=== PATIENT | female | born 1965 | race African-American/Black ===

== ENCOUNTER 2016-08-03 08:42 | Outpatient (CLI) ==
[2016-06-02 22:00] VITALS: BMI 39.6
--- NOTE | 2016-08-03 10:19 | CT ---
EXAM: CT right shoulder without contrast HISTORY: Right shoulder pain for 8 months. COMPARISON: Radiograph 05/19/2016. TECHNIQUE: Multiple axial images of the right shoulder were obtained without intravenous contrast. Images were reformatted in the sagittal and coronal planes. FINDINGS: Bone mineralization is normal. There is no fracture or dislocation. There is moderate a cromioclavicular joint space narrowing with associated marginal osteophyte and subchondral cyst form ation. Glenohumeral joint is intact. No erosive changes are seen. No focal soft tissue abnormalit y is seen. The visualized right lung is clear. Degenerative changes present in the visualized cervi alen and thoracic spine. IMPRESSION: 1. No fracture or dislocation. 2. Moderate acromioclavicular osteoarthritis.
== END 2016-08-03 08:43 | disposition home or self-care (01) ==
LOC: RAD 08:42
PROVIDERS: ATTEND Nurse Practitioner Family
DX: M25.511 Pain in right shoulder (principal)

== ENCOUNTER 2016-12-07 10:28 | Emergency (ER) ==
[2016-12-07 10:36] VITALS: BP 149/89; TEMP 97.9; BMI 35.9
[2016-12-07] MEDS ORDERED: MORPHINE 4 MG/ML SYRINGE IM STA (10:40)
[2016-12-07] MEDS ORDERED: ZOFRAN 4 MG/2 ML IM STA (10:40)
[2016-12-07] MEDS ORDERED: TORADOL IM STA (10:41)
--- NOTE | 2016-12-07 10:45 | ED.PDOC ---
General ED Provider: Dr. CHARO NAYLOR Chief Complaint: Back Pain Stated Complaint: back pain lumbar Time Seen by Physician: 10:30 (seen with gulshan at all times ) Mode of Arrival: Walk-In Information Source: Patient Exam Limitations: No limitations Primary Care Provider: TIGRE ABARCA Nursing and Triage Documentation Reviewed and Agree: Yes Musculoskeletal Complaint Exam - Back Pain Complaint/Exam Mechanism of Injury: Reports: Trauma (while getting out of car twisted and sudden pain ) Onset/Duration: 1 day Symptoms Are: Still present Timing: Constant Episodes Lasting: Hours Initial Severity: Moderate Current Severity: Moderate Character: Reports: Throbbing, Spasmodic, Stiffness Aggravating: Reports: Movements, Lifting, Bending, Walking Alleviating: Reports: Rest, Position Associated Signs and Symptoms: Denies: Swelling, Redness, Bruising, Fever, Weakness, Numbness, Tingling, Abdominal pain, Flank pain, Bladder incontinence, Bowel incontinence, Weight loss, Pain with weight bearing Related History: Reports: Similar episode AAA Risk Factors: Reports: None Cauda Equina Risk Factors: Reports: None Epidural Abcess Risk Factors: Reports: None Related Surgical History: Reports: None Focal Tenderness: No Paraspinal Muscle Tenderness: No Paraspinal Muscle Spasm: No Scoliosis: No Lordosis: No Kyphosis: No SLR Test: Right Negative, Left Negative Hip Motion Testing Pain: Right Negative, Left Negative Focal Weakness: Present: None Focal Sensory Loss: Present: None Differential Diagnoses: Renal Colic, Strain, Sprain Review of Systems - Review Of Systems Constitutional: Reports: No symptoms Eyes: Reports: No symptoms Ears, Nose, Mouth, Throat: Reports: No symptoms Respiratory: Reports: No symptoms Cardiac: Reports: No symptoms GI: Reports: No symptoms : Reports: No symptoms Musculoskeletal: Reports: Back pain Skin: Reports: No symptoms Neurological: Reports: No symptoms Endocrine: Reports: No symptoms Hematologic/Lymphatic: Reports: No symptoms All Other Systems: Reviewed and Negative Past Medical History - Past Medical History Previously Healthy: No Endocrine: Reports: DM 2 Cardiovascular: Reports: Hypertension Respiratory: Reports: None Hematological: Reports: None Gastrointestinal: Reports: None Genitourinary: Reports: None Neuro/Psych: Reports: None Musculoskeletal: Reports: Back Pain (lumbar) Cancer: Reports: None Last Menstrual Period: 04/27/16 - Surgical History General Surgical History: Reports: Unknown - Family History Family History: Reports: Unknown - Social History Smoking Status: Never smoker Hx Substance Use: No Alcohol Screening: None - Immunizations Tetanus Shot up to Date: Yes Physical Exam - Physical Exam Appearance: Well-appearing, No pain distress, Well-nourished Eyes: SHABBIR, EOMI, Conjunctiva clear ENT: Ears normal, Nose normal, Oropharynx normal Respiratory: Airway patent, Breath sounds clear, Breath sounds equal, Respirations nonlabored Cardiovascular: RRR, Pulses normal, No rub, No murmur GI/: Soft, Nontender, No masses, Bowel sounds normal, No Organomegaly Musculoskeletal: Normal strength, ROM intact, No edema, No calf tenderness Skin: Warm, Dry, Normal color Neurological: Sensation intact, Motor intact, Reflexes intact, Cranial nerves intact, Alert, Oriented Psychiatric: Affect appropriate, Mood appropriate Interpretation - Radiology Interpretation Radiology Interpretation By: Radiologist Critical Care Note - Critical Care Note Total Time (mins): 0 Course - Course Orders, Labs, Meds: Orders Category Date Time Status Ketorolac Tromethamine [Toradol] MEDS 12/07/16 10:41 Stat 30 mg IM ONCE STA Morphine Sulfate [Morphine 4 mg/ml Syringe] MEDS 12/07/16 10:40 Stat 4 mg IM ONCE STA Ondansetron HCl/Pf [Zofran 4 mg/2 ml] MEDS 12/07/16 10:40 Stat 4 mg IM ONCE STA CT LUMBAR SPINE W/O CONTRAST Stat RADS 12/07/16 10:41 Ordered Medications Discontinued Medications Generic Name Dose Route Start Last Admin Trade Name Freq PRN Reason Stop Dose Admin Ketorolac Tromethamine 30 mg 12/07/16 10:41 Toradol IM 12/07/16 10:42 ONCE STA Morphine Sulfate 4 mg 12/07/16 10:40 Morphine 4 Mg/Ml Syringe IM 12/07/16 10:41 ONCE STA Ondansetron HCl 4 mg 12/07/16 10:40 Zofran 4 Mg/2 Ml IM 12/07/16 10:41 ONCE STA Vital Signs: Temp Pulse Resp BP Pulse Ox 12/07/16 10:28 97.9 F 71 20 149/89 H 98 Departure - Departure Time of Disposition: 10:44 Disposition: HOME SELF-CARE Discharge Problem: Low back pain Qualifiers: Chronicity: acute Back pain laterality: unspecified Sciatica presence: without sciatica Qualifier Code: (M54.5) Low back pain Instructions: Low Back Strain (ED), Acute Low Back Pain (ED), Lower Back Exercises (ED), Back Pain (ED), Chronic Back Pain (ED) Condition: Good Pt referred to PMD for follow-up: No Prescriptions: Hydrocodone/Acetaminophen [[place] 10-325 Tablet] 1 each PO Q8HR #7 tablet Allergies/Adverse Reactions: Allergies lisinopril Adverse Reaction (Verified 12/07/16 10:38) Wheezing Home Medications: Ambulatory Orders Hydrocodone/Acetaminophen [[place] 10-325 Tablet] 1 each PO Q8HR #7 tablet Disposition Discussed With: Patient
--- NOTE | 2016-12-07 11:45 | CT ---
EXAM: CT lumbar spine without contrast. HISTORY: Lumbar pain COMPARISON: MRI lumbar spine 06/03/2015 and 10/09/2014 TECHNIQUE: Serial axial images of the spine were obtained from the lower thoracic spine through the pelvis without contrast. These were viewed in multiple planes. FINDINGS: Vertebral bodies demonstrate no acute compression fracture. There is 0.4 cm of anterolis thesis of L4 on L5. There is no lytic or blastic lesion. There is moderate to severe facet arthropa thy throughout the lumbar spine. The lumbosacral junction is intact. There is degenerative disease of the sacroiliac joints. L1-L2: Normal L2-L3: Facet arthropathy demonstrates mild bilateral neural foraminal narrowing. L3-L4: Broad-based disc bulge and facet arthropathy with mild central and moderate bilateral neural foraminal narrowing L4-L5: Anterolisthesis with broad-based disc bulge and facet arthropathy with moderate central narro wing as seen on image 52 and bilateral severe neural foraminal narrowing. This is similar in appear ance to lumbar spine 06/03/2015. L5-S1: Facet arthropathy and broad-based disc bulge contribute to bilateral moderate neural foramina l narrowing. Limited views of the soft tissues are unremarkable. IMPRESSION: 1. No acute compression fracture with stable anterolisthesis of L4 on L5. 2. Multilevel degenerative disease of the lumbar spine with scattered areas of central neural sirisha inal narrowing as noted above. This is most pronounced at L4-L5 with moderate central and bilateral severe neural foraminal narrowing. If further evaluation is clinically indicated, MRI may be obtai summer.
== END 2016-12-07 11:52 | disposition home or self-care (01) ==
LOC: ED 10:28
DX: M54.5 Low back pain (principal); X50.1XXA Overexertion from prolonged static or awkward postures, initial encounter
CPT/HCPCS: 96372; 99283

== ENCOUNTER 2016-12-11 16:16 | Emergency (ER) ==
[2016-12-11 16:30] VITALS: BP 144/108; TEMP 97.3
== END 2016-12-11 16:32 | disposition left against medical advice (07) ==
LOC: ED 16:16
DX: M54.9 Dorsalgia, unspecified (principal); G89.29 Other chronic pain

== ENCOUNTER 2016-12-14 11:19 | Outpatient (CLI) ==
[2016-12-14 12:43] LABS: BASOPHILS % (AUTO) 0.5 % (0.0-3.0); EOSINOPHILS # (AUTO) 0.1 K/ul (0.0-0.7); EOSINOPHILS % (AUTO) 1.1 % (0.0-7.0); HEMATOCRIT 38.9 % (37.0-47.0); HEMOGLOBIN 12.7 g/dl (12.0-16.0); IMMATURE GRANULOCYTE % (AUTO) 0.2 % (0.0-5.0); LYMPHOCYTES # (AUTO) 2.1 K/uL (0.60-3.4); LYMPHOCYTES % (AUTO) 24.8 (10.0-50.0); MEAN CORPUSCULAR HEMOGLOBIN 31.4 pg (27.0-31.0); MEAN CORPUSCULAR HGB CONC 32.6 (31.8-35.4); MONOCYTES # (AUTO) 0.4 K/uL (0.4-2.0); MONOCYTES % (AUTO) 4.9 (0-10); NEUTROPHILS # (AUTO) 5.9 K/ul (2.0-6.9); NEUTROPHILS % (AUTO) 68.5; PLATELET COUNT 249 10^3/uL (140-440); RED BLOOD COUNT 4.05 10^6/ul (4.20-5.40); WHITE BLOOD COUNT 8.56 K/ul (4.6-10.2)
[2016-12-14 13:18] LABS: ALBUMIN 3.6 g/dL (3.4-5.0); ALBUMIN/GLOBULIN RATIO 0.86; ANION GAP 10.8; BILIRUBIN,TOTAL 0.59 mg/dL (0.00-1.20); BUN/CREATININE RATIO 10.25; CHOL/HDL RATIO 3.4 (4.5-5.5); CREATININE 0.78 mg/dL (0.60-1.30); POTASSIUM 3.8 mmol/L (3.5-5.10); TOTAL PROTEIN 7.8 g/dL (6.4-8.2)
== END 2016-12-14 11:20 | disposition home or self-care (01) ==
LOC: LAB 11:19
PROVIDERS: ATTEND Nurse Practitioner Family
DX: E11.9 Type 2 diabetes mellitus without complications (principal); E66.9 Obesity, unspecified; E78.5 Hyperlipidemia, unspecified; M54.31 Sciatica, right side
CPT/HCPCS: 36415; 80053; 80061; 83036; 84439; 84443; 85025

== ENCOUNTER 2017-01-07 06:26 | Outpatient (CLI) ==
[2017-01-07 06:52] LABS: BASOPHILS % (AUTO) 0.4 % (0.0-3.0); EOSINOPHILS # (AUTO) 0.1 K/ul (0.0-0.7); EOSINOPHILS % (AUTO) 1.7 % (0.0-7.0); HEMATOCRIT 34.7 % (37.0-47.0); HEMOGLOBIN 11.4 g/dl (12.0-16.0); IMMATURE GRANULOCYTE % (AUTO) 0.1 % (0.0-5.0); LYMPHOCYTES # (AUTO) 2.4 K/uL (0.60-3.4); MEAN CORPUSCULAR HEMOGLOBIN 31.6 pg (27.0-31.0); MEAN CORPUSCULAR HGB CONC 32.9 (31.8-35.4); MEAN CORPUSCULAR VOLUME 96.1 fl (81.0-99.0); MONOCYTES # (AUTO) 0.5 K/uL (0.4-2.0); MONOCYTES % (AUTO) 6.3 (0-10); NEUTROPHILS # (AUTO) 4.5 K/ul (2.0-6.9); NEUTROPHILS % (AUTO) 59.5; PLATELET COUNT 240 10^3/uL (140-440); RED BLOOD COUNT 3.61 10^6/ul (4.20-5.40); WHITE BLOOD COUNT 7.49 K/ul (4.6-10.2)
[2017-01-07 07:32] LABS: ALBUMIN 3.4 g/dL (3.4-5.0); ANION GAP 15.6; BILIRUBIN,TOTAL 0.18 mg/dL (0.00-1.20); BUN/CREATININE RATIO 10.58; CALCIUM 9.1 mg/dL (8.2-10.2); CHOL/HDL RATIO 3.3 (4.5-5.5); CREATININE 0.85 mg/dL (0.60-1.30); POTASSIUM 3.6 mmol/L (3.5-5.10); TOTAL PROTEIN 6.8 g/dL (6.4-8.2)
== END 2017-01-07 06:27 | disposition home or self-care (01) ==
LOC: LAB 06:26
PROVIDERS: ATTEND Internal Medicine
DX: E66.9 Obesity, unspecified (principal); M54.9 Dorsalgia, unspecified; Z82.49 Family history of ischemic heart disease and other diseases of the circulatory system
CPT/HCPCS: 36415; 80053; 80061; 83036; 84443; 85025

== ENCOUNTER 2017-01-15 10:22 | Emergency (ER) ==
--- NOTE | 2017-01-15 10:28 | ED.PDOC ---
General ED Provider: Dr. MAKSIM JAMA JR Chief Complaint: Back Pain Stated Complaint: chronic back pain for 7 years. last night got worse. 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 [End] Time Seen by Physician: 10:32 Mode of Arrival: Walk-In Information Source: Patient Exam Limitations: No limitations Primary Care Provider: ANNA RINCON Nursing and Triage Documentation Reviewed and Agree: No Review of Systems - Review Of Systems Constitutional: Reports: Malaise Eyes: Reports: No symptoms Ears, Nose, Mouth, Throat: Reports: No symptoms Respiratory: Reports: No symptoms Cardiac: Reports: No symptoms GI: Reports: No symptoms : Reports: No symptoms Musculoskeletal: Reports: Back pain Skin: Reports: No symptoms Neurological: Reports: Anxiety Endocrine: Reports: No symptoms Hematologic/Lymphatic: Reports: No symptoms All Other Systems: Other Past Medical History - Past Medical History Previously Healthy: No Endocrine: Reports: DM 2 Cardiovascular: Reports: Hypertension Respiratory: Reports: None Hematological: Reports: None Gastrointestinal: Reports: None Genitourinary: Reports: None Neuro/Psych: Reports: None Musculoskeletal: Reports: Back Pain (lumbar) Cancer: Reports: None Last Menstrual Period: none - Surgical History General Surgical History: Reports: Unknown - Family History Family History: Reports: Unknown - Social History Smoking Status: Never smoker Hx Substance Use: No Alcohol Screening: None Physical Exam - Physical Exam Appearance: Ill-appearing Pain Distress: Moderate Eyes: SHABBIR, EOMI, Conjunctiva clear ENT: Ears normal, Nose normal (tearfull runynose), Oropharynx normal Neck: Supple Respiratory: Airway patent, Breath sounds clear, Breath sounds equal, Respirations nonlabored Cardiovascular: RRR, Pulses normal, No rub, No murmur GI/: Tender (left flank most tender and lower spine and paraspinal area) Musculoskeletal: Normal strength, ROM intact, No edema, No calf tenderness Skin: Warm, Dry, Normal color Neurological: Sensation intact, Motor intact, Reflexes intact, Cranial nerves intact, Alert, Oriented Critical Care Note - Critical Care Note Total Time (mins): 0 Course - Course Orders, Labs, Meds: Lab Review 01/15/17 11:15 Urine Color Yellow Urine Clarity Clear Urine pH 6.0 Ur Specific [place] 1.020 Urine Protein Negative Urine Glucose (UA) 1+ Urine Ketones Negative Urine Blood Negative Urine Nitrite Negative Urine Bilirubin Negative Urine Urobilinogen 0.2 Ur Leukocyte Esterase Negative Orders Category Date Time Status UA [URINALYSIS C & S IF INDICATED] Stat LAB 01/15/17 11:15 Completed Morphine Sulfate [Morphine 4 mg/ml Syringe] MEDS 01/15/17 10:46 Discontinued 4 mg IM ONCE STA Promethazine HCl [Phenergan 25 mg/ml Vial] MEDS 01/15/17 10:39 Discontinued 25 mg IM ONCE STA Medications Discontinued Medications Generic Name Dose Route Start Last Admin Trade Name Fam PRN Reason Stop Dose Admin Morphine Sulfate 4 mg 01/15/17 10:46 01/15/17 11:27 Morphine 4 Mg/Ml Syringe IM 01/15/17 10:47 4 mg ONCE STA Administration Promethazine HCl 25 mg 01/15/17 10:39 01/15/17 11:25 Phenergan 25 Mg/Ml Vial IM 01/15/17 10:40 25 mg ONCE STA Administration Vital Signs: Temp Pulse Resp BP Pulse Ox 01/15/17 10:22 97.5 F L 88 18 156/101 H 98 Departure - Departure Time of Disposition: 12:18 Disposition: HOME SELF-CARE Discharge Problem: Backache Instructions: Low Back Strain (ED), Core Strengthening Exercises (ED) Condition: Good Pt referred to PMD for follow-up: Yes Additional Instructions: may use [place] sparingly -no refills- limit lifting for three days return if worse call PMD in morning about follow up Please follow-up with Dr. Rincon in 1-3 days. Prescriptions: Hydrocodone Bit/Acetaminophen [[place] 10-325] 1 each PO Q6HR PRN #10 tablet PRN Reason: back pain Allergies/Adverse Reactions: Allergies tramadol Adverse Reaction (Intermediate, Verified 01/15/17 10:26) palpitations lisinopril Adverse Reaction (Verified 01/15/17 10:26) Wheezing Home Medications: Ambulatory Orders Hydrocodone Bit/Acetaminophen [[place] 10-325] 1 each PO Q6HR PRN #10 tablet 01/15
[2017-01-15 10:32] VITALS: BP 156/101; TEMP 97.5; BMI 35.9
[2017-01-15] MEDS ORDERED: TORADOL IM STA (10:39)
[2017-01-15] MEDS ORDERED: PHENERGAN 25 MG/ML VIAL IM STA (10:39)
[2017-01-15] MEDS ORDERED: MORPHINE 4 MG/ML SYRINGE IM STA (10:46)
[2017-01-15 11:45] LABS: BILIRUBIN,URINE Negative (NEGATIVE); KETONES,URINE Negative (NEGATIVE); LEUKOCYTE ESTERASE ,URINE Negative (NEGATIVE); NITRITE,URINE Negative (NEGATIVE); PROTEIN,URINE Negative (NEGATIVE); URINE, BLOOD Negative (NEGATIVE)
[2017-01-15 11:48] LABS: ADD URINE MICROSCOPIC NO
== END 2017-01-15 12:25 | disposition home or self-care (01) ==
LOC: ED 10:22
DX: S39.012A Strain of muscle, fascia and tendon of lower back, initial encounter (principal); X50.1XXA Overexertion from prolonged static or awkward postures, initial encounter
CPT/HCPCS: 81001; 96372; 99283

== ENCOUNTER 2017-01-29 16:42 | Emergency (ER) ==
[2017-01-29 16:53] VITALS: BP 160/84; TEMP 98.2; BMI 36.6
--- NOTE | 2017-01-29 16:57 | ED.PDOC ---
General ED Provider: Dr. MAKSIM JAMA JR Chief Complaint: Back Pain Stated Complaint: appointment to see DR. RINCON ON 02/24. SEEN IN THIS ER RECENTLY FOR SAME PROBLEM. 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 [ End ]98.2 79 20 99% 160/84 10/10back pain since last night. SAYS SHE WAS GIVEN MORPHINE LAST VISIT BUT IT "KNOCKED HER OUT FOR DAYS" AND SHE DOES NOT WANT THAT AGAIN Time Seen by Physician: 17:25 Mode of Arrival: Walk-In Information Source: Patient Exam Limitations: No limitations Primary Care Provider: ANNA RINCON Nursing and Triage Documentation Reviewed and Agree: No Review of Systems - Review Of Systems Constitutional: Reports: No symptoms Eyes: Reports: No symptoms Ears, Nose, Mouth, Throat: Reports: No symptoms Respiratory: Reports: No symptoms Cardiac: Reports: No symptoms GI: Reports: No symptoms : Reports: No symptoms Musculoskeletal: Reports: Back pain, Joint pain, Muscle pain Skin: Reports: No symptoms Neurological: Reports: Numbness, Other Endocrine: Reports: No symptoms Hematologic/Lymphatic: Reports: No symptoms All Other Systems: Other Past Medical History - Past Medical History Previously Healthy: No Endocrine: Reports: DM 2 Cardiovascular: Reports: Hypertension Respiratory: Reports: None Hematological: Reports: None Gastrointestinal: Reports: None Genitourinary: Reports: None Neuro/Psych: Reports: None Musculoskeletal: Reports: Back Pain (lumbar) Cancer: Reports: None Last Menstrual Period: N/A - Surgical History General Surgical History: Reports: Unknown - Family History Family History: Reports: Unknown - Social History Smoking Status: Never smoker Hx Substance Use: No Alcohol Screening: None Physical Exam - Physical Exam Appearance: Well-appearing, Obese Pain Distress: Moderate Eyes: SHABBIR, EOMI, Conjunctiva clear ENT: Ears normal, Nose normal, Oropharynx normal Neck: Supple Respiratory: Airway patent, Breath sounds clear, Breath sounds equal, Respirations nonlabored Cardiovascular: RRR, Pulses normal, No rub, No murmur GI/: Soft, Nontender, No masses, Bowel sounds normal, No Organomegaly Musculoskeletal: Normal strength, ROM intact, No edema, No calf tenderness ( tender left sciatic area slight worse with SLR no definite SLR signs(no radiculopathic signs, but complains of numbness lef tfoot) Skin: Warm, Dry, Normal color Neurological: Sensation intact, Motor intact, Reflexes intact, Cranial nerves intact, Alert, Oriented Psychiatric: Affect appropriate, Mood appropriate Critical Care Note - Critical Care Note Total Time (mins): 0 Course - Course Orders, Labs, Meds: Orders Category Date Time Status Ketorolac Tromethamine [Toradol] MEDS 01/29/17 17:19 Discontinued 60 mg IM ONCE STA Medications Discontinued Medications Generic Name Dose Route Start Last Admin Trade Name Fam PRN Reason Stop Dose Admin Ketorolac Tromethamine 60 mg 01/29/17 17:19 01/29/17 17:25 Toradol IM 01/29/17 17:20 60 mg ONCE STA Administration Vital Signs: Temp Pulse Resp BP Pulse Ox 01/29/17 16:47 98.2 F 79 20 160/84 H 99 Departure - Departure Time of Disposition: 17:28 Disposition: HOME SELF-CARE Discharge Problem: Sciatica Instructions: Lower Back Exercises (ED), Sciatica (ED) Condition: Good Pt referred to PMD for follow-up: Yes Additional Instructions: Please follow-up with Dr. Rincon in 1-5 days. may return to work limit activity as tolerated avoid deep pressure may use light ouch to area may do stretching exercises Naprosyn as needed for pain may use [place] for pain not controlled by Naprosyn Prescriptions: Hydrocodone Bit/Acetaminophen [[place] 5-325] 1 - 2 tab PO Q6HR PRN #12 tablet PRN Reason: pain Naproxen [Naprosyn] 500 mg PO Q12HR PRN #30 tablet PRN Reason: PAIN Allergies/Adverse Reactions: Allergies tramadol Adverse Reaction (Intermediate, Verified 01/29/17 16:54) palpitations lisinopril Adverse Reaction (Verified 01/29/17 16:54) Wheezing Home Medications: Ambulatory Orders Hydrocodone Bit/Acetaminophen [[place] 5-325] 1 - 2 tab PO Q6HR PRN #12 tablet 11/10 Naproxen [Naprosyn] 500 mg PO Q12HR PRN #30 tablet 01/29/17
[2017-01-29] MEDS: TORADOL IM STA (17:25)
== END 2017-01-29 17:40 | disposition home or self-care (01) ==
LOC: ED 16:42
DX: M54.40 Lumbago with sciatica, unspecified side (principal)
CPT/HCPCS: 96372; 99283